=== PATIENT | female | born 1960 | race Caucasian/White ===

== ENCOUNTER 2016-11-08 18:08 | Outpatient (CLI) | payer OTHER ==
[2014-08-14 10:19] VITALS: BP 137/88
--- NOTE | 2016-11-08 18:34 | Diagnostic Imaging Report ---
JEROME STEELE~ [facility] [address] [facility].[address] [address] ~ ~ ~ ~ Report Submission Date: Nov 08, 2016 6:25:37 PM CDT Patient ~ Study Name: MAHAMED LATIF ~ Date: Nov 08, 2016 6:08:33 PM CDT ~ Modality Type: CR Gender: F ~ Description: CHEST : 64 ~ Institution: [facility] Physician: JEROME STEELE ~ ~ ~ ~ Examination: PA and lateral chest. History: Evaluate lung march. Comparison exam: None provided Findings: PA lateral chest demonstrate a normal cardiac and mediastinal silhouette. No focal infiltrate.~ No effusion.~ No blunting of the costophrenic margins.~ Osseous structures are appropriate for age. Impression: No acute pulmonary process. ~ Electronically signed on Nov 08, 2016 6:25:37 PM CDT by: Davi ALVARENGA
== END 2016-11-08 18:09 ==
LOC: RAD 18:08
PROVIDERS: ATTEND Physician Assistant
DX: R05 Cough (principal); R06.2 Wheezing
CPT/HCPCS: 71020

== ENCOUNTER 2017-08-02 12:49 | Outpatient (CLI) | payer OTHER ==
[2014-08-14 10:19] VITALS: BP 137/88
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
== END 2017-08-02 13:47 ==
LOC: PULMONARY 12:49
PROVIDERS: ATTEND Internal Medicine Pulmonary Disease
DX: J44.9 Chronic obstructive pulmonary disease, unspecified (principal); R05 Cough; R09.81 Nasal congestion; R60.0 Localized edema
CPT/HCPCS: 99213; 99214

== ENCOUNTER 2017-08-07 08:47 | Outpatient (CLI) | payer OTHER ==
[2014-08-14 10:19] VITALS: BP 137/88
--- NOTE | 2017-08-07 10:23 | Diagnostic Imaging Report ---
MARCIANO MANZO [facility] [address] [facility] [address] [place], [place]. [address] Report Submission Date: Aug 07, 2017 9:54:19 AM CDT Patient Study Name: MAHAMED LATIF Date: Aug 07, 2017 8:57:08 AM CDT Modality Type: CT\SR Gender: F Description: CT CHEST W/O CONTRAST : 64 Institution: [facility] Physician: MARCIANO MANZO Examination: CT chest History: CHRONIC COUGH, SHORT OF BREATH X 10-11 YEARS. QUIT SMOKING 11 YEARS AGO. (Hx) Comparison exams: None available Technique: CT chest without contrast protocol Findings: Lung pleura, parenchyma, and pulmonary vascularity are without gross irregularity. No evidence for suspicious nodule or spiculated lesion. Minimal left lung lingular scarring. No posterior effusion. Anterior mediastinum and neftali are without gross mass or pathologic adenopathy: though sensitivity is reduced on a noncontrast exam. Thoracic aorta demonstrates mild peripheral atherosclerotic disease. No aneurysm. Cardiac silhouette not enlarged. No pericardial effusion. Lower neck structures, upper abdominal organs, and osseous structures are without gross abnormality. Impression: Minimal parenchymal scarring. No acute appearing parenchymal process. Electronically signed on Aug 07, 2017 9:54:19 AM CDT by: Davi ALVARENGA
== END 2017-08-07 08:50 ==
LOC: RAD 08:47
PROVIDERS: ATTEND Internal Medicine Pulmonary Disease
DX: J44.0 Chronic obstructive pulmonary disease with (acute) lower respiratory infection (principal); R09.81 Nasal congestion
CPT/HCPCS: 71250

== ENCOUNTER 2017-08-19 09:11 | Outpatient (CLI) | payer OTHER ==
[2014-08-14 10:19] VITALS: BP 137/88
[2017-08-19] MEDS ORDERED: ALBUTEROL SULFATE 2.5 MG/3 ML AMPUL.NEB NEB ONE (09:22)
--- NOTE | 2017-08-19 10:06 | Diagnostic Imaging Report ---
ADRIEN BROTHERS [facility] [address] [facility] [address] [place], [place]. [address] Report Submission Date: Aug 19, 2017 9:56:17 AM CDT Patient Study Name: MHAAMED LATIF Date: Aug 19, 2017 9:31:06 AM CDT Modality Type: DX Gender: F Description: CHEST : 64 Institution: [facility] Physician: ADRIEN BROTHERS Examination: PA and lateral chest. History: Evaluate lung march. COUGHING AND WHEEZING X 2-3 MONTHS (Hx) Comparison exam: CT chest dated 07 August 2017 Findings: PA lateral chest demonstrate a normal cardiac and mediastinal silhouette. Few vascular calcifications involving the aortic arch. No focal infiltrate. No blunting of the costophrenic margins. Osseous structures are appropriate for age. Impression: No acute appearing pulmonary process. Electronically signed on Aug 19, 2017 9:56:17 AM CDT by: Davi ALVARENGA
== END 2017-08-19 09:12 ==
LOC: RT 09:11
PROVIDERS: ATTEND Family Medicine
DX: J42 Unspecified chronic bronchitis (principal)
CPT/HCPCS: 71046; 94060

== ENCOUNTER 2017-11-22 14:20 | Outpatient (CLI) | payer OTHER ==
[2014-08-14 10:19] VITALS: BP 137/88
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
== END 2017-11-22 14:22 ==
LOC: PULMONARY 14:20
PROVIDERS: ATTEND Internal Medicine Pulmonary Disease
DX: J44.9 Chronic obstructive pulmonary disease, unspecified (principal); R09.81 Nasal congestion; R60.0 Localized edema
CPT/HCPCS: 99213; 99214

== ENCOUNTER 2018-06-28 16:13 | Emergency (ER) | payer OTHER ==
--- NOTE | 2018-06-28 16:43 | ED Physician Documentation ---
General Adult - HISTORIAN Historian: patient - HPI Stated Complaint: left lower leg pain Chief Complaint: Lower Extremity Problem Onset: other (over one month - actually close to a year and increased over the last month) Timing: still present Severity: moderate Further Comments: yes (She states her left lower leg behind her left leg and down the front and back of her leg (more after working all day - she stands for work) she denies any redness. the area is not more swollen than any other part of her leg. She has no injury. She states she has HTN and she doesnt always take her meds (she has HCTZ) she denies any further complaints. She has not tried any OTC Meds in a few days - she states she is aware she should wear support stockings to work but she cannot always get them on due to arthritis pain etc. She did not get an appt with her PCP because she did not want to wait for an appt . She has not mentioned this pain over the last month or year to her PCP .) - ROS CONST: no problems CVS/RESP: denies: chest pain, shortness of breath GI/: none MS/SKIN/LYMPH: denies: rash NEURO/PSYCH: denies: headache - PAST HX Past History: hypertension Allergies/Adverse Reactions: Allergies Allergy/AdvReac Type Severity Reaction Status Date / Time latex Allergy Mild Rash Verified 06/28/18 16:35 - SOCIAL HX Smoking History: non-smoker Alcohol Use: none Drug Use: none - FAMILY HX Family History: No - VITAL SIGNS Vital Signs: Vital Signs Temp Pulse Resp BP Pulse Ox 137/88 08/14/14 10:09 - REVIEWED ASSESSMENTS Nursing Assessment Reviewed: Yes Vitals Reviewed: Yes Progress - Progress Progress: 1650: discussed results and plan General Adult Physical Exam - PHYSICAL EXAM GENERAL APPEARANCE: no distress EENT: eye inspection normal, ENT inspection normal, no signs of dehydration NECK: normal inspection RESPIRATORY: no resp distress, chest non-tender, breath sounds normal CVS: reg rate & rhythm, heart sounds normal, equal pulses, no murmur ABDOMEN: soft, normal bowel sounds, no distension BACK: normal inspection, no CVA tenderness SKIN: warm/dry, normal color, other (left lower leg frontal (no pain to touch - no obvious injury) posterior leg no redness no swelling no obvious injury ) EXTREMITIES: non-tender, normal range of motion, no evidence of injury, edema NEURO: oriented X3 Discharge Clincal Impression: Left leg pain Referrals: Kate Moise MD [Primary Care Provider] - 2 Days Comments: 1. OTC meds as directed as needed for pain 2. WEAR your support stockings - thea when at work 3. Take your meds daily 4. See PCP in 2-4 days 5. Elevate leg when possible 6. Return to ER for any increasing concerns Condition: Stable Disposition: 01 HOME, SELF-CARE Decision to Admit: NO Date of Decison to Admit: 06/28/18 Decision Time: 17:00
[2018-06-28 16:49] VITALS: BP 161/77
[2018-06-28] MEDS ORDERED: KETOROLAC TROMETHAMINE 60 MG/2 ML VIAL IM ONE (16:57)
== END 2018-06-28 17:03 | disposition home or self-care (01) ==
LOC: ED 16:13
DX: M79.662 Pain in left lower leg (principal)
CPT/HCPCS: 96372; 99282; 99283; J1885

== ENCOUNTER 2018-10-06 09:00 | Emergency (ER) | payer OTHER ==
[2018-10-06] MEDS ORDERED: KETOROLAC TROMETHAMINE 60 MG/2 ML VIAL IM ONE (09:15)
--- NOTE | 2018-10-06 09:58 | ED Physician Documentation ---
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 Patient cannot extend right elbow or move right shoulder due to pain. States she took ibuprofen last night between [id number].) - ROS CONST: no problems CVS/RESP: none NEURO: none MS/SKIN/LYMPH: none GI/: denies: nausea - PAST HX Past History: Rt handed, other (arthritis; HTN) Allergies/Adverse Reactions: Allergies Allergy/AdvReac Type Severity Reaction Status Date / Time latex Allergy Mild Rash Verified 10/06/18 09:14 Home Medications: Ambulatory Orders Medication Instructions Recorded Ketorolac Tromethamine [Toradol] 10 mg PO TID #15 tablet 10/06/18 Tramadol HCl [Ultram] 50 mg PO Q6H PRN #15 tablet 10/06/18 - SOCIAL HX Smoking History: cigarettes - FAMILY HX Family History: denies: none - VITAL SIGNS Vital Signs: Vital Signs Temp Pulse Resp BP Pulse Ox 98.0 F 87 16 142/78 96 10/06/18 10:17 10/06/18 10:17 10/06/18 10:17 10/06/18 10:17 10/06/18 10:17 - REVIEWED ASSESSMENTS Nursing Assessment Reviewed: Yes Vitals Reviewed: Yes ED Results Lab/Radiology - Radiology Radiology Impressions: Exam: Right elbow. History: Injury. AP, lateral and oblique view of the right elbow are submitted. No signs of acute fracture or dislocations are seen. No joint effusion is seen. Small spur off the posterior aspect of the olecranon process is noted. Impression: No acute fracture. Electronically signed on Oct 06, 2018 9:44:21 AM CDT by: Braulio Floyd Exam: Right shoulder. History: Injury. Multiple views of the right shoulder are submitted. No signs of acute fracture or dislocations are identified. Sclerosis and spurring in both the glenohumeral joint and at the acromioclavicular joint is noted. Soft tissue calcifications superior to the humeral head may represent some calcific tendinitis. Impression: No Acute fracture. Degenerative changes - Orders Orders: ED Orders Category Date Time Status Sling to Affected Extremity 1T Care 10/06/18 10:01 Active ELBOW 3 VIEWS [RAD] Stat Exams 10/06/18 Taken SHOULDER 2 VIEWS OR MORE [RAD] Stat Exams 10/06/18 Taken Ketorolac Tromethamine [Toradol] Med 10/06/18 09:15 Discontinued 60 mg IM NOW ONE Upper Extremity Injury Physic - Physical Exam General Appearance: mild distress Hand: normal inspection, non-tender, no evidence of injury, normal ROM Wrist: normal inspection, non-tender, no evidence of injury, normal ROM Elbow/Forearm: normal inspection, no evidence of injury, limited ROM, pain Shoulder: normal inspection, no evidence of injury, bone tenderness, limited ROM, pain Neuro/Vascular/Tendon: no vascular compromise, motor nml, sensation nml, ROM nml Skin: warm,dry Head/ENT: nml inspection, pharynx nml Neck/Back: nml inspection, non-tender Resp/CVS: chest non-tender, breath sounds nml, heart sounds nml, no resp. distress, lungs clear, reg. rate & rhythm Discharge Clincal Impression: Internal derangement of right shoulder, Right elbow pain Prescriptions: Ketorolac Tromethamine [Toradol] 10 mg PO TID #15 tablet Tramadol HCl [Ultram] 50 mg PO Q6H PRN #15 tablet PRN Reason: pain Referrals: Kate Moise MD [Primary Care Provider] - 2 Days Additional Instructions: Ice Rest - sling as needed for comfort. Elevation You may use Tylenol every 4hour as needed for pain. Limit your dose to less than 4 G per day. Do not take ibuprofen, aleve, naproxen or any other NSAID while you are on toradol. You may want to try massage, over the counter lidocaine patches, biofreeze, yoanna price or aspercream . Make an appointment to see your PCP in 4-5 days for a recheck. You may need an MRI or physical therapy if you continue to have pain and decreased range of motion. Condition: Stable Disposition: 01 HOME, SELF-CARE Decision to Admit: NO Decision Time: 09:59
[2018-10-06 10:19] VITALS: BP 142/78
--- NOTE | 2018-10-08 13:09 | Diagnostic Imaging Report ---
GISELLA LONGORIA (URANIUM PROCESSING SUPERVISOR) - ER [facility] [address] [facility].[address] [address] Report Submission Date: Oct 06, 2018 9:44:21 AM CDT Patient Study Name: MAHAMED LATIF Date: Oct 06, 2018 9:12:14 AM CDT Modality Type: DX Gender: F Description: ELBOW 3 VIEWS : 64 Institution: [facility] Physician: GISELLA LONGORIA (URANIUM PROCESSING SUPERVISOR) - ER Exam: Right elbow. History: Injury. AP, lateral and oblique view of the right elbow are submitted. No signs of acute fracture or dislocations are seen. No joint effusion is seen. Small spur off the posterior aspect of the olecranon process is noted. Impression: No acute fracture. Electronically signed on Oct 06, 2018 9:44:21 AM CDT by: Braulio ALVARENGA
--- NOTE | 2018-10-08 13:09 | Diagnostic Imaging Report ---
GISELLA LONGORIA (STOCKKEEPER) - ER [facility] [address] [facility] [address] [place] [address]. [address] Report Submission Date: Oct 06, 2018 9:42:50 AM CDT Patient Study Name: MAHAMED LATIF Date: Oct 06, 2018 9:12:14 AM CDT Modality Type: DX Gender: F Description: SHOULDER 2 VIEWS OR MORE : 64 Institution: [facility] Physician: GISELLA LONGORIA (STOCKKEEPER) - ER Exam: Right shoulder. History: Injury. Multiple views of the right shoulder are submitted. No signs of acute fracture or dislocations are identified. Sclerosis and spurring in both the glenohumeral joint and at the acromioclavicular joint is noted. Soft tissue calcifications superior to the humeral head may represent some calcific tendinitis. Impression: Acute fracture. Degenerative changes. Electronically signed on Oct 06, 2018 9:42:50 AM CDT by: Braulio Floyd Exam: Right shoulder. History: Injury. Multiple views of the right shoulder are submitted. No signs of acute fracture or dislocations are identified. Sclerosis and spurring in both the glenohumeral joint and at the acromioclavicular joint is noted. Soft tissue calcifications superior to the humeral head may represent some calcific tendinitis. Impression: No Acute fracture. Degenerative changes Addendum electronically signed by Braulio Floyd on October 06, 2018 9:53:15 AM CDT [facility]
== END 2018-10-06 10:17 | disposition home or self-care (01) ==
LOC: ED 09:00
DX: M24.811 Other specific joint derangements of right shoulder, not elsewhere classified (principal); M25.521 Pain in right elbow
CPT/HCPCS: 73030; 73080; 96372; 99284; J1885